=== PATIENT | male | born 2000 | race Caucasian/White ===

== ENCOUNTER 2023-07-10 00:51 | Outpatient (CLI) | payer MEDICAID, SELFPAY | END 2023-07-10 00:52 | disposition home or self-care (01) | LOC: AMB 07-24 16:49 | PROVIDERS: Visit Provider Emergency Medicine | DX: R10.9 Unspecified abdominal pain (principal); R11.2 Nausea with vomiting, unspecified | CPT/HCPCS: A0425; A0427 ==

== ENCOUNTER 2024-10-28 09:52 | Outpatient (CLI) | payer MEDICAID, SELFPAY | END 2024-10-28 09:53 | disposition home or self-care (01) | LOC: NFLDREF 11-03 01:52 | PROVIDERS: Visit Provider Nurse Practitioner | DX: R07.89 Other chest pain (principal) | CPT/HCPCS: 84484 ==